=== PATIENT | female | born 1940 | race Hispanic/Latino ===

== ENCOUNTER 2017-09-18 01:34 | Emergency (ER) | payer OTHER ==
[2017-09-18] MEDS ORDERED: TRAMADOL HCL 50 MG TABLET ONE (05:02)
[2017-09-18] MEDS ORDERED: HYDRALAZINE HCL 25 MG TABLET ONE (05:40)
[2017-09-18] MEDS ORDERED: IBUPROFEN 200 MG TAB ONE (06:40)
[2017-09-18] MEDS ORDERED: IBUPROFEN 400 MG TABLET ONE (06:40)
== END 2017-09-18 08:05 | disposition home or self-care (01) ==
LOC: EDH 01:34
DX: R51 Headache (principal); G89.18 Other acute postprocedural pain; K08.89 Other specified disorders of teeth and supporting structures; I25.10 Atherosclerotic heart disease of native coronary artery without angina pectoris; Z88.0 Allergy status to penicillin; Z88.1 Allergy status to other antibiotic agents; Z90.49 Acquired absence of other specified parts of digestive tract

== ENCOUNTER 2018-01-03 21:02 | Emergency (ER) | payer OTHER ==
[2018-01-03 21:19] LABS: APPEARANCE,URINE Cloudy (CLEAR); BILIRUBIN,URINE Negative (NEGATIVE); COLOR,URINE Dark Yellow (YELLOW); GLUCOSE, URINE (UA) Negative (NEGATIVE); KETONES,URINE Negative (NEGATIVE); LEUKOCYTE ESTERASE ,URINE Moderate (NEGATIVE); NITRATE,URINE Negative (NEGATIVE); OCCULT BLOOD,URINE Large (NEGATIVE); PROTEIN,URINE Negative (NEGATIVE); UROBILINOGEN,URINE 0.2 mg/dL (0.2-1.0)
[2018-01-03 21:40] LABS: BASOPHILS % (AUTO) 0.9 % (0.0-5.0); EOSINOPHILS % (AUTO) 2.5 % (0.0-8.0); HEMATOCRIT 34.2 % (36-48); LYMPHOCYTES % (AUTO) 17.9 % (21.0-51.0); MEAN CORPUSCULAR HEMOGLOBIN 29.3 pg (27.0-33.0); MEAN CORPUSCULAR HGB CONC 35.1 g/dL (32.0-36.0); MEAN CORPUSCULAR VOLUME 83.6 fL (79-99); MONOCYTES % (AUTO) 7.2 % (3.0-13.0); NEUTROPHILS % (AUTO) 71.5 % (40.0-77.0); PLATELET COUNT (AUTO) 327 K/uL (130-400); RED BLOOD CELL COUNT(AUTO) 4.09 MIL/uL (4.00-5.50); WHITE BLOOD COUNT (AUTO) 8.5 K/uL (4.8-10.8)
[2018-01-03 21:41] LABS: RBC,URINE >100 /HPF (0-1)
[2018-01-03 21:42] LABS: BACTERIA,URINE Few /HPF (None Seen)
[2018-01-03] MEDS ORDERED: KETOROLAC TROMETHAMINE 30MG/ML ONE (21:45)
[2018-01-03] MEDS ORDERED: SODIUM CHLORIDE 0.9% 1000ML 1,000 ML IV ONE (21:45)
[2018-01-03] MEDS ORDERED: ONDANSETRON HCL MDV 20ML 2 MG/ML VIAL ONE (21:45)
[2018-01-03 21:50] LABS: CREATININE 1.1 mg/dL (0.5-1.5)
[2018-01-03 21:55] LABS: ALBUMIN 3.5 g/dL (3.5-5.0); BILIRUBIN,TOTAL 0.3 mg/dL (0.2-1.0); TOTAL PROTEIN, SERUM 7.2 g/dL (6.0-8.3)
[2018-01-03] MEDS ORDERED: CEFTRIAXONE SODIUM 1 GM ONE (22:48)
== END 2018-01-03 22:53 | disposition home or self-care (01) ==
LOC: EDH 21:02
DX: N39.0 Urinary tract infection, site not specified (principal); E11.9 Type 2 diabetes mellitus without complications; I10 Essential (primary) hypertension; I25.10 Atherosclerotic heart disease of native coronary artery without angina pectoris; E78.5 Hyperlipidemia, unspecified; Z88.0 Allergy status to penicillin; Z88.1 Allergy status to other antibiotic agents; Z88.6 Allergy status to analgesic agent
CPT/HCPCS: 36415; 74176; 80053; 81001; 85025; 96374; 96375; 99285; J0696; J1885; J7030

== ENCOUNTER → 2018-05-29 | Outpatient (CLI) | payer OTHER ==
[~2018-05-29] MED LIST: REGADENOSON 0.4 MG/5 ML PF SYG IVP SCH
== END | disposition home or self-care (01) ==
LOC: SHCH 08:22
PROVIDERS: ATTEND Internal Medicine Cardiovascular Disease
DX: I25.10 Atherosclerotic heart disease of native coronary artery without angina pectoris (principal)
CPT/HCPCS: 78452; 93017; 96374; A9500 ×2; J2785

== ENCOUNTER → 2022-03-23 | Outpatient (CLI) | payer OTHER | END | disposition home or self-care (01) | LOC: OIH 10:31 | PROVIDERS: ATTEND Internal Medicine Cardiovascular Disease | DX: R09.89 Other specified symptoms and signs involving the circulatory and respiratory systems (principal) | CPT/HCPCS: 93880 ==

== ENCOUNTER → 2023-08-12 | Outpatient (CLI) | payer OTHER | END | disposition home or self-care (01) | LOC: RAH 09:27 | PROVIDERS: ATTEND Internal Medicine | DX: M17.0 Bilateral primary osteoarthritis of knee (principal); M11.262 Other chondrocalcinosis, left knee; M25.561 Pain in right knee; M25.562 Pain in left knee | CPT/HCPCS: 73562 ==

== ENCOUNTER → 2024-01-10 | Outpatient (CLI) | payer OTHER | END | disposition home or self-care (01) | LOC: SHCH 10:00 | PROVIDERS: ATTEND Internal Medicine Cardiovascular Disease | DX: I08.3 Combined rheumatic disorders of mitral, aortic and tricuspid valves (principal); R01.1 Cardiac murmur, unspecified | CPT/HCPCS: 93306 ==

== ENCOUNTER 2024-11-16 11:54 | Emergency (ER) | payer OTHER ==
[~2024-11-16] VITALS: Ht 165.1 cm; Wt 70.3 kg
--- NOTE | 2024-11-16 12:08 | ERN ---
ED Note History of Present Illness Stated Complaint: DYSPNEA AND SOB SUDDEN ONSET Chief Complaint: Dyspnea/Respdistress Time Seen by MD: 12:00 Dictation: PATIENT IS AN 84-YEAR-OLD FEMALE COMING IN WITH COMPLAINTS OF DYSPNEA WITH SHORTNESS A BREATH ONSET THIS MORNING. SHE STATES SHE HAD GOTTEN UP WOUND WAS FEEL FINE AND SHE STARTED HAVING A SORE THROAT WITH PAINFUL SWALLOWING AND WAS SHORT OF BREATH. SHE DENIES ANY HISTORY OF CHF F/ASTHMA, PULMONARY FIBROSIS ETC. NO FEVER NO CHILLS. SHE STATES SHE DOES HAVE A HISTORY OF DIABETES HYPERTENSION AND HAS HEART STENTS X3. NO CHEST PAIN AT THIS TIME. RECEIVED ALBUTEROL Allergies: Coded Allergies: KASSIE Inhibitors (Unverified Allergy, Unknown, COUGH, 11/16/24) Penicillins (Unverified Allergy, Unknown, HIVES, 11/16/24) levofloxacin (Unverified Allergy, Unknown, ANAPHYLAXIS, 11/16/24) metformin (Unverified Allergy, Unknown, 11/16/24) DIARRHEA sulfamethoxazole (Unverified Allergy, Unknown, RASH, 11/16/24) trimethoprim (Unverified Allergy, Unknown, RASH, 11/16/24) Past Medical History History: Not Applicable RN Note Reviewed/Agreed w/PFSH: Yes Review of System Dictation CONSTITUTIONAL: NEGATIVE EXCEPT FOR HPI HEAD/FACE: NEGATIVE EXCEPT FOR HPI EENT: NEGATIVE EXCEPT FOR HPI SORE THROAT RESPIRATORY: NEGATIVE EXCEPT FOR HPI SHORTNESS A BREATH GASTROINTESTINAL/ABDOMINAL: NEGATIVE EXCEPT FOR HPI GENITOURINARY: NEGATIVE EXCEPT FOR HPI MUSCULOSKELETAL: NEGATIVE EXCEPT FOR HPI INTEGUMENTARY: NEGATIVE EXCEPT FOR HPI NEUROLOGICAL/PSYCH: NEGATIVE EXCEPT FOR HPI HEMATOLOGIC/LYMPHATIC: NEGATIVE EXCEPT FOR HPI ALL SYSTEMS NEGATIVE, EXCEPT NOTED ABOVE. 13 POINT REVIEW OF SYSTEMS ASSESSED AND ALL NEGATIVE EXCEPT FOR ABOVE. Initial Vital Sign VS Vital Signs Date Time Temp Pulse Resp B/P (MAP) Pulse Ox O2 Delivery O2 Flow Rate FiO2 11/16/24 11:58 88 17 135/80 100 Aerosol Face Mask 8.0 11/16/24 12:15 98.4 28 Physical Exam Dictation VITAL SIGNS REVIEWED GENERAL APPEARANCE: ALERT, ORIENTED X 3, NO ACUTE DISTRESS, WELL DEVELOPED, NOURISHED. HEAD AND FACE: NON-TRAUMATIC. EYES: PERRL, PINK CONJUNCTIVAS, EYELID NO TRAUMA, ANTERIOR CHAMBER WITH ARCUS SENILIS. EARS: PINNAS INTACT AND NO SIGNS OF TRAUMA OR ERYTHEMA EAR CANALS CLEAR AND NO DISCHARGE TM NO ERYTHEMA NOSE: NO DISCHARGE, NO BLEEDING. OROPHARYNX: MOUTH NORMAL, TONGUE PINK, PHARYNX CLEAR, MILD PHARYNGEAL ERYTHEMA, TONSILS NO EXUDATES, NO ABSCESSES NOTED, MUCOUS MEMBRANE MOIST UVULA MIDLINE, VOICE IS CLEAR NECK: SUPPLE, NON-TENDER, NO THYROMEGALY, NO MASSES, NO JVD, NO BRUITS BREAST:DEFERRED CHEST:NO TENDERNESS, NO CREPITUS, NO PARADOXICAL MOVEMENT, NO RETRACTIONS LUNGS:CLEAR, WELL-VENTILATED, SYMMETRIC, NO RALES, NO WHEEZING OR STRIDOR NOTED. DIMINISHED THROUGHOUT NO RETRACTIONS HEART: REGULAR RATE, REGULAR RHYTHM, NO MURMUR, NO GALLOPS VASCULAR: NO PERIPHERAL EDEMA, ABDOMEN: SOFT, POSITIVE BOWEL SOUNDS, NONDISTENDED, NO GUARDING, NONTENDER, NO REBOUND, NO MASSES NO HEPATOMEGALY, NO SPLENOMEGALY, NO EDMONDS'S SIGN, NO HERNIAS. RECTAL: DEFERRED GENITAL: DEFERRED NEUROLOGICAL: NORMAL SPEECH, MOTOR FUNCTION INTACT, SENSORY FUNCTION INTACT MUSCULOSKELETAL: NECK NONTENDER, FULL RANGE OF MOTION, BACK NONTENDER, FULL RANGE OF MOTION, EXTREMITIES: NONTENDER, FULL RANGE OF MOTION SKIN: COLOR PINK, DRY, NO TURGOR, NO RASH, NO LACERATIONS, NO ABRASIONS, NO CONTUSIONS. LYMPHATIC: DEFERRED Results (Laboratory/Radiology) Laboratory/Radiology Laboratory Tests Test 11/16/24 12:49 11/16/24 14:13 White Blood Count 6.9 K/uL (4.8-10.8) Red Blood Count 4.54 MIL/uL (4.00-5.50) Hemoglobin 13.6 g/dL (12.0-16.0) Hematocrit 39.0 % (36-48) Mean Corpuscular Volume 85.9 fL (79-99) Mean Corpuscular Hemoglobin 30.0 pg (27.0-33.0) Mean Corpuscular Hemoglobin Concent 34.9 g/dL (32.0-36.0) Red Cell Distribution Width 13.2 % (11.0-15.5) Platelet Count 286 K/uL (130-400) Mean Platelet Volume 9.8 fL (7.5-10.5) Immature Granulocyte % (Auto) 0.3 % (0-1) Neutrophils (%) (Auto) 70.5 % (40.0-77.0) Lymphocytes (%) (Auto) 20.4 % (21.0-51.0) L Monocytes (%) (Auto) 6.8 % (3.0-13.0) Eosinophils (%) (Auto) 1.4 % (0.0-8.0) Basophils (%) (Auto) 0.6 % (0.0-5.0) Neutrophils # (Auto) 4.9 K/uL (1.8-7.7) Lymphocytes # (Auto) 1.4 K/uL (1.0-4.8) Monocytes # (Auto) 0.5 K/uL (0.1-1.0) Eosinophils # (Auto) 0.10 K/uL (0.00-0.70) Basophils # (Auto) 0.04 K/uL (0.00-0.20) Absolute Immature Granulocyte (auto 0.02 K/uL (0-1) Nucleated Red Blood Cells 0.0 % (0.0-0.19) Sodium Level 139 mmol/L (136-145) Potassium Level 3.8 mmol/L (3.5-5.1) Chloride Level 101 mmol/L (101-111) Carbon Dioxide Level 30 mmol/L (21-32) Blood Urea Nitrogen 15 mg/dL (7-18) Creatinine 0.8 mg/dL (0.5-1.0) Glomerular Filtration Rate Calc 73 mL/min (>90) Random Glucose 215 mg/dL (70-105) H Total Calcium 9.1 mg/dL (8.5-10.1) Troponin I High Sensitivity 4 ng/L (4-50) B-Type Natriuretic Peptide 27 pg/mL (0-100) SARS-CoV-2 Antigen (Rapid) PRESUMPTIVE NEGATIVE Group A Streptococcus Rapid NEGATIVE (NEGATIVE) Labs Reviewed?: Yes EKG Comment: EKG IS SINUS RHYTHM/HEART RATE 89/OCCASIONAL PACS FIFTEEN 15 REPEAT EKG SHOWS FOR SINUS RHYTHM/HEART RATE 82/0 CHANGES TO LEADS TWO THREE AND AVF ED Course ED Course Orders Procedure Category Date Status Time Covid19 (Sars Antigen LAB 11/16/24 Complete Rapid) 12:04 Budesonide 0.5 Mg/2 PHA 11/16/24 Complete Ml Inh (Pulmicort 0. 12:04 Albuterol 0.083% PHA 11/16/24 Complete 2.5mg/3ml (Proventil 12:30 Cbc With Differential LAB 11/16/24 Complete 12:04 Troponin I High LAB 11/16/24 Complete Sensitivity 12:04 12 Lead Ekg Tracing- EKG 11/16/24 Complete Technical 12:04 Chest 1vw RAD 11/16/24 Resulted 12:04 Basic Metabolic Panel LAB 11/16/24 Complete 12:04 Ketorolac PHA 11/16/24 Complete Tromethamine 30mg/Ml 12:30 B-Type Natriuretic LAB 11/16/24 Complete Peptide 12:07 Dexamethasone 4mg/Ml PHA 11/16/24 Complete 1ml Vial (Dexametha 15:00 12 Lead Ekg Tracing- EKG 11/16/24 Complete Technical 15:13 Rapid (Group A Strep) LAB 11/16/24 Complete 15:34 Lidocaine Hcl 2% PHA 11/16/24 Complete Viscous (Lidocaine Hcl 16:30 Mag/Alum/Simeth 30ml PHA 11/16/24 Complete (Maalox Plus 30ml) 16:30 Dicyclomine Hcl PHA 11/16/24 Complete (Bentyl 10mg/5ml 16:30 Current Medications Medications (Trade) Dose Ordered Sig/Boby Route PRN Reason Start Time Stop Time Status Last Admin Dose Admin Al Hydroxide/Mg Hydroxide (MAALox PLUS 30ML) 30 ml ONCE ONCE PO 11/16/24 16:30 11/16/24 16:31 DC 11/16/24 16:39 Albuterol Sulfate (Proventil 0.083% 2.5mg/3ml) 2.5MG ONCE ONCE IH 11/16/24 12:30 11/16/24 12:31 DC 11/16/24 13:14 Budesonide (Pulmicort 0.5 Mg/2ml) 0.5 mg ONCE STAT IH 11/16/24 12:04 11/16/24 12:16 DC 11/16/24 13:13 Dexamethasone Sodium Phosphate (dexaMETHasone 4MG/ML 1ML VIAL) 8 mg ONCE ONCE IVP 11/16/24 15:00 11/16/24 15:01 DC 11/16/24 16:38 Dicyclomine HCl (Bentyl 10mg/5ml Syrup) 10 mg ONCE ONCE PO 11/16/24 16:30 11/16/24 16:31 DC 11/16/24 16:39 Ketorolac Tromethamine (toRADol) 30 mg ONCE ONCE IVP 11/16/24 12:30 11/16/24 12:31 DC 11/16/24 13:50 Lidocaine HCl (Lidocaine HCl 2% Viscous) 10 ml ONCE ONCE PO 11/16/24 16:30 11/16/24 16:31 DC 11/16/24 16:39 Vital Signs Date Time Temp Pulse Resp B/P (MAP) Pulse Ox O2 Delivery O2 Flow Rate FiO2 11/16/24 14:00 98.4 89 16 139/94 96 Nasal Cannula* 2 28 11/16/24 13:14 81 18 11/16/24 12:15 98.4 84 28 138/70 100 Nasal Cannula* 2 28 11/16/24 11:58 88 17 135/80 100 Aerosol Face Mask 8.0 1605/PATIENT CONTINUES DESCRIBED THE SENSATION IN HER THROAT BURNING. SHE HAS NO SHORTNESS A BREATH SATURATIONS ARE 98-100% ON ROOM AIR WORKUP IS ESSENTIALLY NEGATIVE SHE DOES STATE SHE TAKES OMEPRAZOLE AND PEPCID DAILY. 1650/PATIENT STATES BURNING SENSATION AND THROAT IS MARKEDLY IMPROVED AFTER GI COCKTAIL. SHE SAYS SHE WISHES TO GO HOME DOES NOT WANT TO BE ADMITTED. I WAS IN HER HOME TO CONTINUE HER MEDICATIONS AT HOME HEART Score Response (Comments) Value EKG: Repolarization changes 1 Age: > 65yrs (+2) 2 Risk Factors: 3+ risk factors (+2) 2 Initial Troponin: Normal limit (0) 0 Total 5 Medical Decision Making MDM MDM: DIFFERENTIAL DIAGNOSIS: SARS/FLU/STREP/BRONCHITIS/PNEUMONIA/ACS/AMI/ELECTROLYTE IMBALANCE DOWN TO/DEHYDRATION/ RATIONALE: TESTS CONSIDERED AND ORDERED SECONDARY TO SHARED DECISION MAKING INCLUDE: COUGH/GASTRITIS EKG/LABS/RADIOLOGY PREVIOUS OUTSIDE RECORDS REVIEWED: OLD ER VISITS. RISK OF COMPLICATION AND/OR MORBIDITY OR MORTALITY OF PATIENT MANAGEMENT: NONE MEDICATIONS-PER MEDICATION RECONCILIATION NEED FOR HOSPITALIZATION: PATIENT DOES NOT MEET CRITERIA FOR HOSPITALIZATION. REFUSED NEED FOR EMERGENCY MAJOR/MINOR SURGERY: NO THERE ARE NO SOCIAL CONCERNS WITH THIS PATIENT. PRESCRIPTION DRUG MANAGEMENT SUCRALFATE PRESCRIPTIONS WILL INCLUDE SYMPTOMATIC CARE PATIENT'S PRIOR EXTERNAL MEDICAL RECORDS FROM OTHER ER VISITS WERE REVIEWED BY ME INDICATED. PRIOR TESTING AND RESULTS FROM PREVIOUS VISITS WERE REVIEWED. PRIOR TESTS WERE TAKEN INTO ACCOUNT WITH MEDICAL DECISION MAKING AND RESOURCE UTILIZATION, INDEPENDENT HISTORIAN/HISTORIANS WERE USED TO OBTAIN COMPLETE MEDICAL HISTORY. I INDEPENDENTLY INTERPRETED THE TEST THAT WERE PERFORMED, RESULTS WERE REVIEWED BY ME AND CONSIDERED FINDINGS ON RADIOLOGY IF ORDERED. MEDICAL MANAGEMENT AND EXAMINATION INTERPRETATION DISCUSSIONS WERE HAD BY ME WITH OTHER QUALIFIED HEALTHCARE PROFESSIONALS INDICATED FOR THE PATIENT'S CARE. DX & DISP Disposition: Discharge Departure Impression: Primary Impression: Esophageal reflux disease Additional Impressions: Uncontrolled diabetes mellitus, Cough Condition: Stable Scripts Sucralfate (Sucralfate) 1 Gram/10 Ml Oral.susp 10 ML PO BID for 10 Days, #400 ML 0 Refills Prov: RAMAKRISHNA SCANLON NP 11/16/24 Additional Instructions: FOLLOW-UP WITH PRIMARY CARE PROVIDER IN 1 TO 2 DAYS. TAKE MEDICATIONS DIRECTED HERE IN THE EMERGENCY ROOM. OKAY TO CONTINUE HOME MEDICATIONS UNLESS OTHERWISE DISCUSSED DURING YOUR VISIT IN THE EMERGENCY ROOM TODAY. RETURN TO YOUR NEAREST EMERGENCY ROOM IF SYMPTOMS WORSEN OR IF THERE IS NO IMPROVEMENT. CALL 911 IF YOU NEED IMMEDIATE ASSISTANCE. TAKE TYLENOL OR MOTRIN [id number] NEEDED AND IF NO CONTRAINDICATIONS ARE PRESENT. INCREASE ORAL HYDRATION. A WOUND CULTURE OR URINE CULTURE WAS ORDERED HERE IN THE EMERGENCY ROOM DEPARTMENT PLEASE FOLLOW-UP WITH PRIMARY CARE PROVIDER AND ADVISE THEM TO GET REPEAT PORTS FROM OUR FACILITY. IF YOU HAD ANY KASSIE WRAP/SPLINTS THAT WERE APPLIED HERE, PLEASE DO NOT REMOVE THEM UNTIL YOU SEE YOUR PRIMARY CARE OR SPECIALTY. CONTINUE YOUR MEDICATIONS AT HOME. TAKE SUCRALFATE LIQUID 30 MINUTES BEFORE MEALS AND AT BEDTIME FOR THE NEXT 10 DAYS. INCREASE YOUR WATER INTAKE. SUGGEST NO COFFEE, NO ICE TEA, NO SPICY FOODS NO CITRUS FRUIT JUICE UNTIL CLEARED BY YOUR DOCTOR. Referrals: CHAPIN PERRY MD (PCP) I have reviewed the case, and I agree with, Diagnosis and Plan RAMAKRISHNA SCANLON NP November 16, 2024 12:08
--- NOTE | 2024-11-16 12:22 | EKG ---
[facility] Test Date: 2024-11-16 Test Time: 12:19:24 Pat Name: NANCY JOHNS Department: ED Room: Gender: F Micro Paleontologist: [id number] : 1940 Requested By: RAMAKRISHNA SCANLON Order Number: [id number] Reading MD: Jamie Whitehead Measurements Intervals [place] Rate: 89 P: 26 [place]: 141 QRS: 4 QRSD: 57 T: 42 QT: 410 QTc: 497 Interpretive Statements Sinus rhythm Atrial premature complex Low voltage, precordial leads No previous ECG available for comparison Electronically Signed On 11-18-2024 13:06:38 CDT by Jamie Whitehead Please click the below link to view image of tracing.
--- NOTE | 2024-11-16 12:53 | HMCIMG ---
Exam Type: CHEST 1VW Clinical Information: SHORTNESS A BREATH Comparison: None Findings: The lungs are clear of infiltrates. The heart is normal in size. The bony and soft tissue structures of the chest are unremarkable. Impression: Clear lungs.
[2024-11-16 12:56] LABS: BASOPHILS # (AUTO) 0.04 K/uL (0.00-0.20); BASOPHILS % (AUTO) 0.6 % (0.0-5.0); EOSINOPHILS % (AUTO) 1.4 % (0.0-8.0); IMMATURE GRANULOCYTE ABSOLUTE 0.02 K/uL (0-1); LYMPHOCYTES # (AUTO) 1.4 K/uL (1.0-4.8); LYMPHOCYTES % (AUTO) 20.4 % (21.0-51.0); MEAN CORPUSCULAR HGB CONC 34.9 g/dL (32.0-36.0); MEAN CORPUSCULAR VOLUME 85.9 fL (79-99); MONOCYTES # (AUTO) 0.5 K/uL (0.1-1.0); MONOCYTES % (AUTO) 6.8 % (3.0-13.0); NEUTROPHILS # (AUTO) 4.9 K/uL (1.8-7.7); NEUTROPHILS % (AUTO) 70.5 % (40.0-77.0); PLATELET COUNT (AUTO) 286 K/uL (130-400); RED BLOOD CELL COUNT(AUTO) 4.54 MIL/uL (4.00-5.50); RED CELL DISTRIBUTION WIDTH 13.2 % (11.0-15.5); WHITE BLOOD COUNT (AUTO) 6.9 K/uL (4.8-10.8)
[2024-11-16 13:05] LABS: CREATININE 0.8 mg/dL (0.5-1.0); POTASSIUM 3.8 mmol/L (3.5-5.1)
[2024-11-16] MEDS: BUDESONIDE 0.5 MG/2 ML INH IH STA (13:13)
[2024-11-16 13:14] VITALS: PULSE 81; RESP 18
[2024-11-16] MEDS: ALBUTEROL 0.083% 2.5 MG/3 ML INH IH ONE (13:14)
[2024-11-16] MEDS: ketOROlac 30MG VIAL (30MG/ML) IVP ONE (13:50)
--- NOTE | 2024-11-16 15:19 | EKG ---
[facility] Test Date: 2024-11-16 Test Time: 15:15:58 Pat Name: NANCY JOHNS Department: ED Room: Gender: F Author: [id number] : 1940 Requested By: RAMAKRISHNA SCANLON Order Number: [id number] Reading MD: Jamie Whitehead Measurements Intervals [place] Rate: 82 P: 26 NM: 147 QRS: -18 QRSD: 61 T: 31 QT: 395 QTc: 460 Interpretive Statements Sinus rhythm Inferior infarct, old Compared to ECG 11/16/2024 12:19:24 Myocardial infarct finding now present Atrial premature complex(es) no longer present Electronically Signed On 11-18-2024 13:09:03 CDT by Jamie Whitehead Please click the below link to view image of tracing.
[2024-11-16] MEDS: dexaMETHasone SOD PHOSPHATE 4 MG/ML 1ML VIAL IVP ONE (16:38)
[2024-11-16] MEDS: DICYCLOMINE HCL 10 MG/5 ML ML PO ONE (16:39)
[2024-11-16] MEDS: MAG/ALUM/SIMETH 30 ML UDCUP PO ONE (16:39)
[2024-11-16] MEDS: LIDOCAINE HCL 2% VISCOUS 15 ML UDCUP PO ONE (16:39)
[2024-11-16] MEDS ORDERED: SUCR1ORA15 PO (17:04)
[2024-11-16 18:32] VITALS: BP 136/53; PULSE 79; RESP 16; TEMP 98.4; O2SAT 96
== END 2024-11-16 19:07 | disposition home or self-care (01) ==
LOC: EDH 11:54
DX: K21.9 Gastro-esophageal reflux disease without esophagitis (principal); E11.65 Type 2 diabetes mellitus with hyperglycemia; Z79.51 Long term (current) use of inhaled steroids; Z88.0 Allergy status to penicillin; Z88.1 Allergy status to other antibiotic agents; Z88.2 Allergy status to sulfonamides; Z20.822 Contact with and (suspected) exposure to COVID-19
CPT/HCPCS: 99285; 96374; 71045; 96375; 87426; 84484; 80048; 83880; 85025; 87880; 36415; 93005 ×2; 94640; J1100; J1885